=== PATIENT | male | born 1955 | race Caucasian/White ===

== ENCOUNTER → 2019-03-03 | Outpatient (CLI) | payer OTHER ==
--- NOTE | 2019-03-03 10:53 | EST ---
EXERCISE STRESS DATE OF SERVICE: 03/03/2019 AGE: 63 SEX: Male HT: 70" WT: 184 pounds PROTOCOL: Steve STAGE: II DURATION OF EXERCISE: 6 minutes HEART RATE REST: 79 BLOOD PRESSURE REST: 111/82 MAXIMUM HEART RATE ACHIEVED: 145 MAXIMUM BLOOD PRESSURE: 134/80 85% MPHR: 133 100% MPHR: 156 METS: 7 INDICATIONS: Chest pain. CLINICAL INFORMATION: Baseline EKG shows sinus rhythm, normal axis, normal intervals. Patient exercised on Steve protocol for a total of 6 minutes, achieving 7 METs, 85% of predicted maximal heart rate without chest pain or diagnostic ST-segment depression. The patient became short of breath at this level of activity. CONCLUSIONS: 1. Average exercise tolerance. 2. Negative stress test by EKG criteria. MMODL / IJN: [id number] /
== END | disposition home or self-care (01) ==
LOC: RADNMMAIN 08:27
PROVIDERS: ATTEND Family Medicine
DX: R07.9 Chest pain, unspecified (principal); Z88.8 Allergy status to other drugs, medicaments and biological substances
CPT/HCPCS: 93017

== ENCOUNTER 2020-03-09 07:40 | Day surgery (SDC) | payer MEDICARE, OTHER ==
[2020-03-02 15:28] VITALS: BMI 25.7
[~2020-03-09 07:40] MED LIST: LACTATED RINGERS 1,000 ML IV SCH; LIDOCAINE 1% (10MG/ML) FOR IV START INTRADERMA PRN
[2020-03-09 08:02] VITALS: RESP 16; TEMP 97.8
[2020-03-09] MEDS ORDERED: PROPOFOL 10 MG/ML 20 ML VIAL IV ONE (08:44)
--- NOTE | 2020-03-09 08:48 | P.GSHP ---
History of Present Illness H&P Date: 03/09/20 Chief Complaint: Colon cancer screening Patient here today for colonoscopy. Last colonoscopy 10 years ago. States his sister had colon cancer. Otherwise no bowel complaints. Past Medical History Past Medical History: Asthma, Cancer, Hyperlipidemia Additional Past Medical History / Comment(s): prostate CA dx Dec 2019 History of Any Multi-Drug Resistant Organisms: None Reported Past Surgical History: Hernia Repair Additional Past Surgical History / Comment(s): prostate bx,татьяна inguinal hernia repair Past Anesthesia/Blood Transfusion Reactions: No Reported Reaction, Postoperative Nausea & Vomiting (PONV) Smoking Status: Former smoker - Past Family History Mother Additional Family Medical History / Comment(s): ruptured bowel Sister(s) Family Medical History: Cancer Medications and Allergies Home Medications Medication Instructions Recorded Confirmed Type Fluticasone/Salmeterol 1 puff INHALATION BID 03/02/20 03/09/20 History [Fluticasone-Salmeterol 232-14] Montelukast Sodium [Singulair] 10 mg PO HS 03/02/20 03/09/20 History Multivitamins, Thera [Multivitamin 1 tab PO DAILY 03/02/20 03/09/20 History (formulary)] Plant Stanol Bernadette [Cholest Off] 450 mg PO DAILY 03/02/20 03/09/20 History Pravastatin Sodium [Pravachol] 80 mg PO DAILY 03/02/20 03/09/20 History risperiDONE [RisperDAL] 1.5 mg PO QAM 03/02/20 03/09/20 History Allergies Allergy/AdvReac Type Severity Reaction Status Date / Time No Known Allergies Allergy Verified 03/02/20 15:15 Surgical - Exam Vital Signs Temp Pulse Resp BP Pulse Ox 97.8 F 98 16 132/85 95 03/09/20 08:01 03/09/20 08:01 03/09/20 08:01 03/09/20 08:01 03/09/20 08:01 Physical exam: General: Well-developed, well-nourished HEENT: Normocephalic, sclerae nonicteric Abdomen: Nontender, nondistended Extremities: No edema Neuro: Alert and oriented Assessment and Plan (1) Colon cancer screening Narrative/Plan: Will proceed with colonoscopy Current Visit: Yes Status: Acute Code(s): Z12.11 - ENCOUNTER FOR SCREENING FOR MALIGNANT NEOPLASM OF COLON SNOMED Code(s): 803929777
--- NOTE | 2020-03-09 08:59 | P.PCN ---
Date of Procedure: 03/09/20 Procedure(s) Performed: PREOPERATIVE DIAGNOSIS: Colon cancer screening POSTOPERATIVE DIAGNOSIS: Mild diverticulosis PROCEDURE: Colonoscopy ANESTHESIA: MAC SURGEON: Rigoberto Martinez M.D. SPECIMENS: None ENDOSCOPIC PROCEDURE: The patient was placed on the endoscopy table in the left decubitus position. The Olympus colonoscope was inserted into the anus and passed under direct visualization to the base of the cecum. The appendiceal orifice was visualized. From that point the scope was slowly withdrawn inspecting all surfaces carefully. There were no neoplastic inflammatory or polypoid lesions throughout the cecum, ascending, transverse, descending, sigmoid and rectum. There was mild left-sided diverticulosis noted. Digital rectal examination was normal. The patient was taken to the recovery room in stable condition per anesthesia guidelines. RECOMMENDATIONS: Resume diet. Follow-up colonoscopy 5 years given patient's family history of colon cancer
[2020-03-09 09:20] VITALS: BP 117/78; PULSE 83
== END 2020-03-09 09:44 | disposition home or self-care (01) ==
LOC: ORWHC2ENDO 07:40
PROVIDERS: ATTEND Surgery
DX: Z12.11 Encounter for screening for malignant neoplasm of colon (principal); K57.30 Diverticulosis of large intestine without perforation or abscess without bleeding; Z80.0 Family history of malignant neoplasm of digestive organs; E78.5 Hyperlipidemia, unspecified; Z87.891 Personal history of nicotine dependence; F41.9 Anxiety disorder, unspecified; F32.9 Major depressive disorder, single episode, unspecified; Z79.899 Other long term (current) drug therapy; J45.909 Unspecified asthma, uncomplicated; Z85.46 Personal history of malignant neoplasm of prostate; Z98.890 Other specified postprocedural states; Z79.51 Long term (current) use of inhaled steroids
CPT/HCPCS: J2704; G0105

== ENCOUNTER → 2020-05-20 | Outpatient (CLI) | payer MEDICARE, OTHER ==
--- NOTE | 2020-05-20 14:22 | EST ---
EXERCISE STRESS AGE: 64 SEX: Male HT: 5'11" WT: 179 LBS. PROTOCOL: Steve STAGE: 2 DURATION OF EXERCISE: 6 minutes HEART RATE REST: 89 BLOOD PRESSURE REST: 118/85 MAXIMUM HEART RATE ACHIEVED: 147 MAXIMUM BLOOD PRESSURE: 149/84 85% MPHR: 132 100% MPHR: 155 METS: 7.1 INDICATIONS: CHEST PAIN CLINICAL INFORMATION: Baseline rhythm is sinus mechanism, rate of 89, normal axis and intervals, poor R progression. Baseline blood pressure 118/85 mmHg. Patient exercised on Steve protocol for 6 minutes, reaching peak rate 147 beats per minute which is equal to 95% of maximum predicted heart rate. Peak blood pressure 149/84 mmHg. Test was terminated secondary to fatigue. There was no chest pain. Electrocardiograph monitoring revealed occasional PVCs with rare couplets. There was no evidence of diagnostic ischemic ST deviation. CONCLUSION: 1. Average exercise tolerance with no chest discomfort. 2. Frequent single PVCs with rare couplets. 3. Normal electrocardiographic response to exercise with no evidence of exercise induced ischemia. MMODL / IJN: [id number] /
== END | disposition home or self-care (01) ==
LOC: RADNMMAIN 08:19
PROVIDERS: ATTEND Family Medicine
DX: I49.8 Other specified cardiac arrhythmias (principal); R07.9 Chest pain, unspecified
CPT/HCPCS: 93017

== ENCOUNTER → 2023-01-18 | Outpatient (CLI) | payer MEDICARE, OTHER ==
[2023-01-18 19:12] LABS: Basophils % (A) 1.8 %; Eosinophils # (A) 0.51 X 10*3/uL (0.04-0.35); Eosinophils % (A) 9.4 %; HCT 49.3 % (39.6-50.0); HGB 16.1 d/dL (13.0-17.0); Lymphocytes # (A) 2.19 X 10*3/uL (0.90-5.00); Lymphocytes % (A) 40.4 %; MCH 30.7 pg (27.0-32.0); MCHC 32.7 d/dL (32.0-37.0); MCV 93.9 FL (80.0-97.0); Monocytes # (A) 0.61 X 10*3/uL (0.20-1.00); Monocytes % (A) 11.3 %; NRBC Per 100 WBC 0 X 10*3/uL (0.00-0.01); Neutrophils % (A) 36.9 %; Platelet Count 213 X 10*3/uL (140-440); RBC 5.25 X 10*6/uL (4.40-5.60); RDW 12.4 % (11.5-14.5); WBC 5.42 X 10*3/uL (4.50-10.00)
[2023-01-18 20:52] LABS: Blood Urea Nitrogen 16.5 mg/dL (9.0-27.0); Calcium 9.4 mg/dL (8.7-10.3); Chloride 104 mmol/L (96-109); Glucose 101 mg/dL (70-110); Potassium 4.7 mmol/L (3.5-5.5); Sodium 139 mmol/L (135-145)
== END | disposition home or self-care (01) ==
LOC: LABPAT 13:26
PROVIDERS: ATTEND Urology
DX: Z01.812 Encounter for preprocedural laboratory examination (principal); C61 Malignant neoplasm of prostate
CPT/HCPCS: 80048; 85025

== ENCOUNTER 2023-01-23 11:39 | Day surgery (SDC) | payer MEDICARE, OTHER ==
[2023-01-22 08:59] VITALS: BMI 26.2
[~2023-01-23 11:39] MED LIST changes: +DEXAMETHASONE SOD PHOSPHATE 4 MG/ML 1 ML VIAL IV ONE; +GENTAMICIN 120 MG in SODIUM CHLORIDE 0.9% 100 ML IVPB PRN; +HYDROmorphone 0.5 MG/0.5 ML SYRINGE IVP PRN; +MIDAZOLAM 2 MG/2 ML VIAL IV PRN; +ONDANSETRON 4 MG/2 ML VIAL IVP ONE
--- NOTE | 2023-01-23 11:49 | P.HPIHPCON ---
History of Present Illness H&P Date: 01/23/23 Chief Complaint: Prostate cancer This is a 67-year-old male with history of [place] 7 prostate cancer diagnosed back in 2019. Patient did not follow-up after his positive biopsy. His PSA has been stable at 4.1. On rectal exam he is having a more discrete nodule along the right side. Discussed with him I recommend proceeding with a repeat biopsy given the prostate cancer diagnosis. Discussed risk of bleeding, infection. Consent for Procedure: I have explained the operation/procedure to the patient, including the risks, benefits, side effects, alternative therapies (including not receiving the proposed treatment or service), the likelihood of the patient achieving his/her goals, and potential recuperation problems for the procedure/sedation/analgesia, as well as any blood products, if indicated. I also explained to the patient the risks, benefits and side effects of the alternatives, as well as the risks related to not receiving the proposed procedure, care, treatment, or services. Past Medical History Past Medical History: Asthma, Cancer, GERD/Reflux, Hyperlipidemia Additional Past Medical History / Comment(s): prostate CA dx Dec 2019. STOPPED TAKING ROSUVASTATIN R/T JOINT PAIN History of Any Multi-Drug Resistant Organisms: None Reported Past Surgical History: Hernia Repair Additional Past Surgical History / Comment(s): prostate bx,. татьяна inguinal hernia repair. COLONOSCOPY. BILAT CATARACTS REMOVED WITH LENS IMPLANTS Past Anesthesia/Blood Transfusion Reactions: Postoperative Nausea & Vomiting (PONV) Smoking Status: Former smoker - Past Family History Mother Additional Family Medical History / Comment(s): ruptured bowel Sister(s) Family Medical History: Cancer Medications and Allergies Home Medications Medication Instructions Recorded Confirmed Type Fluticasone Propion/Salmeterol 1 puff INHALATION BID 03/02/20 01/22/23 History [Fluticasone-Salmeterol 232-14] Montelukast Sodium [Singulair] 10 mg PO HS 03/02/20 01/22/23 History Multivitamins, Thera [Multivitamin 1 tab PO DAILY 03/02/20 01/22/23 History (formulary)] Ciprofloxacin 500 mg PO BID 01/22/23 01/22/23 History Omeprazole 20 mg PO DAILY 01/22/23 01/22/23 History risperiDONE 0.5 mg PO W/SUPPER 01/22/23 01/22/23 History Allergies Allergy/AdvReac Type Severity Reaction Status Date / Time No Known Allergies Allergy Verified 01/22/23 08:31 Surgical - Exam - General no distress, no pain - Eyes normal ocular movement, no pale - ENT normal nares, normal mucosa - Respiratory normal expansion, normal respiratory effort - Abdomen Abdomen: soft, non tender Assessment and Plan Assessment: OR for transrectal ultrasound of the prostate
[2023-01-23 12:16] VITALS: RESP 18; TEMP 98.5
[2023-01-23] MEDS ORDERED: fentaNYL (PF) 50 MCG/ML 2 ML AMP ONE (12:29)
[2023-01-23] MEDS ORDERED: PROPOFOL 10 MG/ML 20 ML VIAL IV ONE (12:29)
[2023-01-23] MEDS ORDERED: MIDAZOLAM 2 MG/2 ML VIAL ONE (12:29)
--- NOTE | 2023-01-23 12:57 | P.OP ---
Date of Procedure: 01/23/23 Preoperative Diagnosis: Prostate cancer Postoperative Diagnosis: Same Procedure(s) Performed: Transrectal ultrasound, prostate biopsy Implants: None Anesthesia: ZONIAA Surgeon: Drake Gibson Estimated Blood Loss (ml): 1 Pathology: other (Prostate biopsy) Condition: stable Disposition: PACU Indications for Procedure: This is a 67-year-old male with history of [place] 7 prostate cancer diagnosed back in 2019. Patient did not follow-up after his positive biopsy. His PSA has been stable at 4.1. On rectal exam he is having a more discrete nodule along the right side. Discussed with him I recommend proceeding with a repeat biopsy given the prostate cancer diagnosis. Discussed risk of bleeding, infection. Description of Procedure: The patient was taken to the operating room and placed in the left lateral decubitus position. The [employer] transrectal ultrasound probe was placed intrarectally. . The prostate was imaged in both the axial and sagittal planes, there was a hypoechoic area along the left apex. Using the Biopsy gun, 12 biopsies of the peripheral zone were obtained utilizing a standard template, an extra biopsy was taken of the left apex. Once the procedure was completed, the ultrasound probe was removed. The patient tolerated the procedure well was taken to the recovery room stable condition
[2023-01-23 13:34] VITALS: BP 118/75; PULSE 91
== END 2023-01-23 13:51 | disposition home or self-care (01) ==
LOC: OR 11:39
PROVIDERS: ATTEND Urology
DX: Z85.46 Personal history of malignant neoplasm of prostate (principal)
CPT/HCPCS: 88305; 55700; J2250; J1100; J2405; J3010; J1580; J2704

== ENCOUNTER 2023-05-12 17:55 | Emergency (ER) | payer MEDICARE, OTHER ==
[2023-05-12 18:11] VITALS: BP 153/90; PULSE 95; RESP 16; TEMP 98.7
--- NOTE | 2023-05-12 18:47 | ED ---
General Adult HPI - General Chief complaint: Wound/Laceration Stated complaint: lip laceration Time Seen by Provider: 05/12/23 18:04 Source: patient Mode of arrival: ambulatory Limitations: no limitations - History of Present Illness Initial comments: 67-year-old male presented to the ED with a chief complaint of skin problem. Patient states an hour and a half ago he was picking his dry, chapped lips and after peeling the skin his lower lip started bleeding. States that he has been applying gentle pressure to this however states it has continued bleeding thus prompting presentation to the ED for further evaluation. Patient's not on blood thinners. Upon evaluation, patient reports that this has now stopped the bleeding. No other complaints at this time. - Related Data Home Medications Medication Instructions Recorded Confirmed Fluticasone Propion/Salmeterol 1 puff INHALATION BID 03/02/20 01/23/23 [Fluticasone-Salmeterol 232-14] Montelukast Sodium [Singulair] 10 mg PO HS 03/02/20 01/23/23 Multivitamins, Thera [Multivitamin 1 tab PO DAILY 03/02/20 01/23/23 (formulary)] Ciprofloxacin 500 mg PO BID 01/22/23 01/23/23 Omeprazole 20 mg PO DAILY 01/22/23 01/23/23 risperiDONE 0.5 mg PO W/SUPPER 01/22/23 01/23/23 Allergies Allergy/AdvReac Type Severity Reaction Status Date / Time No Known Allergies Allergy Verified 05/12/23 18:00 Review of Systems ROS Statement: Those systems with pertinent positive or pertinent negative responses have been documented in the HPI. ROS Other: All systems not noted in ROS Statement are negative. Past Medical History Past Medical History: Asthma, Cancer, GERD/Reflux, Hyperlipidemia Additional Past Medical History / Comment(s): prostate CA dx Dec 2019. STOPPED TAKING ROSUVASTATIN R/T JOINT PAIN History of Any Multi-Drug Resistant Organisms: None Reported Past Surgical History: Hernia Repair Additional Past Surgical History / Comment(s): prostate bx,. татьяна inguinal hernia repair. COLONOSCOPY. BILAT CATARACTS REMOVED WITH LENS IMPLANTS Past Anesthesia/Blood Transfusion Reactions: Postoperative Nausea & Vomiting (PONV) Past Psychological History: Anxiety, Depression Smoking Status: Former smoker Past Alcohol Use History: None Reported Past Drug Use History: None Reported - Past Family History Mother Additional Family Medical History / Comment(s): ruptured bowel Sister(s) Family Medical History: Cancer General Exam Limitations: no limitations General appearance: alert, in no apparent distress Pupils: Present: other (Lips are chapped. Right bottom lip has an area of dried blood. No active bleeding.) Respiratory exam: Present: normal lung sounds bilaterally Cardiovascular Exam: Present: regular rate, normal rhythm GI/Abdominal exam: Present: soft Neurological exam: Present: alert, oriented X3 Skin exam: Present: warm, dry Course Vital Signs 05/12/23 17:58 Temperature 98.7 F Pulse Rate 95 Respiratory 16 Rate Blood Pressure 153/90 O2 Sat by Pulse 96 Oximetry Medical Decision Making - Medical Decision Making Was pt. sent in by a medical professional or institution (, PA, SIEBEL SOLUTION ARCHITECT, urgent care, hospital, or alf...) When possible be specific @ -No Did you speak to anyone other than the patient for history (EMS, parent, family, police, friend...)? What history was obtained from this source @ -No Did you review nursing and triage notes (agree or disagree)? Why? @ -I reviewed and agree with nursing and triage notes Were old charts reviewed (outside hosp., previous admission, EMS record, old EKG, old radiological studies, urgent care reports/EKG's, alf records)? Report findings @ -No old charts were reviewed Differential Diagnosis (chest pain, altered mental status, abdominal pain women, abdominal pain men, vaginal bleeding, weakness, fever, dyspnea, syncope, headache, dizziness, GI bleed, back pain, seizure, CVA, palpatations, mental health, musculoskeletal)? @ -Differential Musculoskeletal Muscular strain, contusion, ligament sprain, fracture, arthritis, septic arthritis, bursitis, cellulitis, muscle spasm, nerve compression, DVT, arterial occlusion, herpes zoster, electrolyte abnormality, tumor.... This is not meant to be in all inclusive list EKG interpreted by me (3pts min.). @ -None X-rays interpreted by me (1pt min.). @ -None done CT interpreted by me (1pt min.). @ -None done U/S interpreted by me (1pt. min.). @ -None done What testing was considered but not performed or refused? (CT, X-rays, U/S, labs)? Why? @ -None What meds were considered but not given or refused? Why? @ -None Did you discuss the management of the patient with other professionals (professionals i.e. , PA, SIEBEL SOLUTION ARCHITECT, lab, RT, psych nurse, foster care social worker, clinical review nurse, teacher, property utilization officer, case folder)? Give summary @ -No Was smoking cessation discussed for >3mins.? @ -No Was critical care preformed (if so, how long)? @ -No Were there social determinants of health that impacted care today? How? (Homelessness, low income, unemployed, alcoholism, drug addiction, transportation, low edu. Level, literacy, decrease access to med. care, fci, rehab)? @ -No Was there de-escalation of care discussed even if they declined (Discuss DNR or withdrawal of care, Hospice)? DNR status @ -No What co-morbidities impacted this encounter? (DM, HTN, Smoking, COPD, CAD, Cancer, CVA, ARF, Chemo, Hep., AIDS, mental health diagnosis, sleep apnea, morbid obesity)? @ -None Was patient admitted / discharged? Hospital course, mention meds given and route, prescriptions, significant lab abnormalities, going to OR and other pertinent info. @ -Discharge 67-year-old male presenting to the ED with chapped lips and concern to his lip bleeding after he peeled the dry skin off. At this time bleeding has ceased. No other complaints at this time. Advised good hydration and using some sort of Chapstick. Discharged home in stable condition. Undiagnosed new problem with uncertain prognosis? @ -No Drug Therapy requiring intensive monitoring for toxicity (Heparin, Nitro, Insulin, Cardizem)? @ -No Were any procedures done? @ -No Diagnosis/symptom? @ -Chapped/bleeding lips, now resolved Acute, or Chronic, or Acute on Chronic? @ -Acute Uncomplicated (without systemic symptoms) or Complicated (systemic symptoms)? @ -Uncomplicated Side effects of treatment? @ -No Exacerbation, Progression, or Severe Exacerbation? @ -No Poses a threat to life or bodily function? How? (Chest pain, [place], [place], pneumonia, PE, COPD, DKA, ARF, appy, cholecystitis, CVA, Diverticulitis, Homicidal, Suicidal, threat to staff... and all critical care pts) @ -No Disposition Clinical Impression: Chapped lips Disposition: HOME SELF-CARE Condition: Good Additional Instructions: Please return to the Emergency Department if symptoms worsen or any other concerns. Please apply some sort of Chapstick to prevent drying of the lips. Do not peel the dried skin off. Is patient prescribed a controlled substance at d/c from ED?: No Referrals: Laureano Case MD [Primary Care Provider] - 1-2 days Time of Disposition: 18:50
== END 2023-05-12 18:55 | disposition home or self-care (01) ==
LOC: EC 17:55
DX: K13.0 Diseases of lips (principal); J45.909 Unspecified asthma, uncomplicated; K21.9 Gastro-esophageal reflux disease without esophagitis; Z86.59 Personal history of other mental and behavioral disorders; Z87.891 Personal history of nicotine dependence; Z79.51 Long term (current) use of inhaled steroids; Z79.899 Other long term (current) drug therapy
CPT/HCPCS: 99282

== ENCOUNTER → 2024-09-15 | Outpatient (CLI) | payer MEDICARE, OTHER ==
[2024-09-15 18:48] LABS: Basophils % (A) 1.5 %; Eosinophils # (A) 0.57 X 10*3/uL (0.04-0.35); Eosinophils % (A) 8.3 %; HCT 47.9 % (39.6-50.0); HGB 15.2 g/dL (13.0-17.0); Lymphocytes # (A) 2.21 X 10*3/uL (0.90-5.00); Lymphocytes % (A) 32.3 %; MCH 30.6 pg (27.0-32.0); MCHC 31.7 g/dL (32.0-37.0); MCV 96.4 FL (80.0-97.0); Mean Platelet Volume 10.2 FL (9.5-12.2); Monocytes # (A) 0.69 X 10*3/uL (0.20-1.00); Monocytes % (A) 10.1 %; NRBC Per 100 WBC 0 X 10*3/uL (0.00-0.01); Neutrophils # (A) 3.23 X 10*3/uL (1.80-7.70); Neutrophils % (A) 47.2 %; Platelet Count 191 X 10*3/uL (140-440); RBC 4.97 X 10*6/uL (4.40-5.60); RDW 12.3 % (11.5-14.5); WBC 6.84 X 10*3/uL (4.50-10.00)
[2024-09-15 19:14] LABS: Appearance,Urine Clear (Clear); Bilirubin,Urine Negative (Negative); Blood,Urine Negative (Negative); Color,Urine Yellow (Yellow); Ketones,Urine Negative (Negative); Nitrite,Urine Negative (Negative); Specific Gravity,Urine 1.015 (1.001-1.030)
[2024-09-15 19:23] LABS: Bacteria,Urine None Seen (None Seen)
[2024-09-15 19:25] LABS: Blood Urea Nitrogen 13.2 mg/dL (9.0-27.0); Calcium 8.9 mg/dL (8.7-10.3); Carbon Dioxide 27.2 mmol/L (21.6-31.8); Chloride 101 mmol/L (96-109); Glucose 91 mg/dL (70-110); Potassium 4.3 mmol/L (3.5-5.5); Sodium 138 mmol/L (135-145)
== END | disposition home or self-care (01) ==
LOC: LABWHC1 13:29
PROVIDERS: ATTEND Urology
DX: Z01.812 Encounter for preprocedural laboratory examination (principal); C61 Malignant neoplasm of prostate
CPT/HCPCS: 80048; 81001; 85025; 87086

== ENCOUNTER 2024-09-23 07:02 | Day surgery (SDC) | payer MEDICARE, OTHER ==
--- NOTE | 2024-09-22 07:35 | P.HPIHPCON ---
History of Present Illness H&P Date: 09/22/24 Chief Complaint: Prostate cancer This is a 69-year-old male with a history of prostate cancer diagnosed back in January 2020, biopsy at that time showed evidence of [place] 7 prostate cancer. He is been on active surveillance. He recently had a rise in his PSA, underwent a prostate MRI that showed evidence of a PI-RADS 4 lesion near the left peripheral zone near the urethra. Discussed with him given this finding I do recommend proceeding with an MRI guided fusion biopsy, aware of the risk which include but not limited to bleeding, infection Consent for Procedure: I have explained the operation/procedure to the patient, including the risks, benefits, side effects, alternative therapies (including not receiving the proposed treatment or service), the likelihood of the patient achieving his/her goals, and potential recuperation problems for the procedure/sedation/analgesia, as well as any blood products, if indicated. I also explained to the patient the risks, benefits and side effects of the alternatives, as well as the risks related to not receiving the proposed procedure, care, treatment, or services. Past Medical History Past Medical History: Asthma, Cancer, GERD/Reflux, Hyperlipidemia Additional Past Medical History / Comment(s): prostate CA dx Dec 2019. STOPPED TAKING ROSUVASTATIN R/T JOINT PAIN History of Any Multi-Drug Resistant Organisms: None Reported Past Surgical History: Hernia Repair Additional Past Surgical History / Comment(s): prostate bx, eye peel. татьяна inguinal hernia repair. COLONOSCOPY. BILAT CATARACTS REMOVED WITH LENS IMPLANTS, laser after cataracts, MRI fusion bx Past Anesthesia/Blood Transfusion Reactions: Postoperative Nausea & Vomiting (PONV) Smoking Status: Former smoker - Past Family History Mother Additional Family Medical History / Comment(s): ruptured bowel Sister(s) Family Medical History: Cancer Medications and Allergies Home Medications Medication Instructions Recorded Confirmed Type Fluticasone Propion/Salmeterol 1 puff INHALATION BID 03/02/20 09/19/24 History [Fluticasone-Salmeterol 232-14] Montelukast Sodium [Singulair] 10 mg PO HS 03/02/20 09/19/24 History Multivitamins, Thera [Multivitamin 1 tab PO DAILY 03/02/20 09/19/24 History (formulary)] Ciprofloxacin 500 mg PO BID 01/22/23 09/19/24 History Omeprazole 20 mg PO DAILY 01/22/23 09/19/24 History risperiDONE 0.5 mg PO W/SUPPER 01/22/23 09/19/24 History Albuterol Inhaler [Ventolin Hfa 1 - 2 puff INHALATION Q6H PRN 09/19/24 09/19/24 History Inhaler] Tamsulosin HCl [Flomax] 0.4 mg PO HS 09/19/24 09/19/24 History Vit D(Unk) 1 tab PO DAILY 09/19/24 09/19/24 History Allergies Allergy/AdvReac Type Severity Reaction Status Date / Time No Known Allergies Allergy Verified 09/19/24 08:53 Surgical - Exam - General no distress, no pain - Eyes normal ocular movement, no pale - ENT normal nares, normal mucosa - Respiratory normal expansion, normal respiratory effort - Abdomen Abdomen: soft, non tender, no distended Assessment and Plan Assessment: MRI fusion biopsy of the prostate
[~2024-09-23 07:02] MED LIST changes: -DEXAMETHASONE SOD PHOSPHATE 4 MG/ML 1 ML VIAL IV ONE; -GENTAMICIN 120 MG in SODIUM CHLORIDE 0.9% 100 ML IVPB PRN; -HYDROmorphone 0.5 MG/0.5 ML SYRINGE IVP PRN; -LACTATED RINGERS 1,000 ML IV SCH; -MIDAZOLAM 2 MG/2 ML VIAL IV PRN; -ONDANSETRON 4 MG/2 ML VIAL IVP ONE
[2024-09-23] MEDS: IV FLUID CONTINUATION 1,000 ML IV ONE (07:28)
[2024-09-23 07:40] VITALS: RESP 16; TEMP 98
[2024-09-23] MEDS: GENTAMICIN 40 MG/ML 2 ML VIAL IM PRN (07:48)
[2024-09-23] MEDS: LACTATED RINGERS 1,000 ML IV SCH (07:48)
[2024-09-23] MEDS: DEXAMETHASONE SOD PHOSPHATE 4 MG/ML 1 ML VIAL IVP STA (07:49)
[2024-09-23] MEDS: ONDANSETRON 4 MG/2 ML VIAL IVP STA (07:50)
[2024-09-23] MEDS ORDERED: PROPOFOL 10 MG/ML 20 ML VIAL IV ONE (08:51)
--- NOTE | 2024-09-23 09:16 | P.OP ---
Date of Procedure: 09/23/24 Preoperative Diagnosis: Prostate cancer Postoperative Diagnosis: Same Procedure(s) Performed: MRI fusion biopsy of the prostate Anesthesia: MAC Estimated Blood Loss (ml): 0 Pathology: other (Prostate biopsies) Condition: stable Disposition: PACU Indications for Procedure: This is a 69-year-old male with a history of prostate cancer diagnosed back in January 2020, biopsy at that time showed evidence of [place] 7 prostate cancer. He is been on active surveillance. He recently had a rise in his PSA, underwent a prostate MRI that showed evidence of a PI-RADS 4 lesion near the left peripheral zone near the urethra. Discussed with him given this finding I do recommend proceeding with an MRI guided fusion biopsy, aware of the risk which include but not limited to bleeding, infection Description of Procedure: The patient was taken to the operating room and placed in the left lateral decubitus position. The [employer] transrectal ultrasound probe was placed intrarectally. It was then placed within the stand of the [employer] MRI/TRUS Fusion for Prostate Biopsy system. The prostate was imaged in both the axial and sagittal planes. Using the Biopsy gun, 3 biopsies were obtained from the target lesion, there were was one lesions, . The remaining 12 biopsies of the peripheral zone were obtained utilizing a standard template. Once the procedure was completed, the ultrasound probe was removed. The patient tolerated the procedure well was taken to the recovery room stable condition
[2024-09-23 09:30] VITALS: BP 125/84; PULSE 74
== END 2024-09-23 09:47 | disposition home or self-care (01) ==
LOC: OR 07:02
PROVIDERS: ATTEND Urology
DX: C61 Malignant neoplasm of prostate (principal); E78.5 Hyperlipidemia, unspecified; J45.909 Unspecified asthma, uncomplicated; Z79.51 Long term (current) use of inhaled steroids; Z87.891 Personal history of nicotine dependence
CPT/HCPCS: 55700; 88305; J1580; J1100; J2405; J2704